=== PATIENT | female | born 1970 | race Caucasian/White ===

== ENCOUNTER 2016-11-14 23:35 | Emergency (ER) | payer OTHER ==
[2016-11-15 02:31] VITALS: BP 150/81
== END 2016-11-15 02:31 | disposition home or self-care (01) ==
LOC: ED 23:35
DX: M25.561 Pain in right knee (principal); Z88.8 Allergy status to other drugs, medicaments and biological substances

== ENCOUNTER 2017-10-30 18:57 | Emergency (ER) | payer OTHER ==
[~2017-10-30] VITALS: Ht 157.5 cm; Wt 135.6 kg
[2017-10-30 19:05] VITALS: Ht 157.5 cm; Wt 135.6 kg
[2017-10-30 20:29] VITALS: BP 134/78
== END 2017-10-30 20:29 | disposition home or self-care (01) ==
LOC: ED 18:57
DX: M54.12 Radiculopathy, cervical region (principal); Z91.041 Radiographic dye allergy status
CPT/HCPCS: J1885